=== PATIENT | male | born 1990 | race Caucasian/White ===

== ENCOUNTER 2020-01-23 19:21 | Emergency (ER) | payer BC ==
[~2020-01-23] VITALS: Ht 177.8 cm; Wt 102.1 kg
[2020-01-23 19:49] VITALS: BP 151/92
--- NOTE | 2020-01-23 19:55 | NUR ---
[facility] PATIENT HAD A DIRTY NEEDLESTICK FROM COVID PATIENT THIS PM. PATIENT WAS TESTED FOR COVID THIS AM, RESULTS PENDING. PATIENT HAS NO SYMPTOMS, BUT SEVERAL POSITIVE COVID PATIENT AT CARE CENTER PER PATIENT
[2020-01-23] MEDS ORDERED: ADACEL VIAL IM ONE ×2 (20:09→20:30)
--- NOTE | 2020-01-23 20:11 | ER.PDOC ---
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 Source pt not known to have hepatitis or AIDS Timing/Duration: 1 hour Severity: mild Associated Symptoms: denies symptoms Past Medical History Medical History: no pertinent history Social History Alcohol Use: occassionally Drug Use: none Review of Systems Constitutional: no symptoms reported EENTM: no symptoms reported Respiratory: no symptoms reported Cardiovascular: no symptoms reported Gastrointestinal: no symptoms reported Genitourinary: no symptoms reported Musculoskeletal: no symptoms reported Skin: other (needle stick L hand) Psychiatric/Neurological: no symptoms reported Hematologic/Lymphatic: no symptoms reported Immunological/Allergic: no symptoms reported Physical Exam General Appearance: No Apparent Distress, WD/WN EENT: eyes nml inspection, nml ENT inspection Neck: Non-Tender, Full Range of Motion Respiratory: chest non-tender, lungs clear CVS: reg rate & rhythm, no murmur, no gallop Gastrointestinal: Normal Bowel Sounds Back: Normal Inspection Extremities: Other (Needle puncture wound thenar eminence L hand) 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 NML as Tested, No Motor/Sensory Deficits, Alert, Normal Mood/Affect Skin: Normal Color Lymphatic: No Adenopathy Results/Orders Results/Orders Vital Signs Date Time Temp Pulse Resp B/P (MAP) Pulse Ox O2 Delivery O2 Flow Rate FiO2 01/23/20 19:49 98.4 100 16 99 01/23/20 19:49 98.4 100 16 01/23/20 19:49 98.4 100 16 151/92 (111) 99 Room Air Departure Time of Disposition: 20:10 Disposition: 01 HOME, SELF-CARE Impression: Primary Impression: Needle stick injury with contaminated needle Condition: Stable Referrals: PCP,UNKNOWN (PCP) PRIMARY CARE PROVIDER Additional Instructions: Quarantine procedures as per detention protocol Duration or Time Spent with Pa: MARISELA KYLE MD January 23, 2020 20:11
== END 2020-01-23 20:20 | disposition home or self-care (01) ==
LOC: ER 19:21
DX: S61.432A Puncture wound without foreign body of left hand, initial encounter (principal); Z77.21 Contact with and (suspected) exposure to potentially hazardous body fluids; W46.0XXA Contact with hypodermic needle, initial encounter; Y93.89 Activity, other specified; Y92.128 Other place in nursing home as the place of occurrence of the external cause; Y99.0 Civilian activity done for income or pay
CPT/HCPCS: 90471; 90715; 99284

== ENCOUNTER 2020-03-08 13:49 | Emergency (ER) | payer BC ==
[~2020-03-08] VITALS: Ht 177.8 cm; Wt 102.1 kg
[2020-03-08 14:52] VITALS: BP 133/74
--- NOTE | 2020-03-08 14:56 | ER.PDOC ---
General Chief Complaint: Requesting Medical Care Stated Complaint: PAIN,ABD PAIN,MALE Time seen by MD: 14:42 Source: patient Exam Limitations: no limitations History of Present Illness Initial Comments Pt reports discomfort in scrotum, L>R, for last 1 week. Today began to feel chilled, but no definite fever. Also reports body aches, fatigue, some gener alized abdominal discomfort. Had some nausea last week. Severity/Quality: moderate Associated Symptoms: Hesitancy Prior symptoms/Treatment: No Similar symptoms previous; Recenly Seen (Saw PCP a couple weeks ago for a 'spot' on his L testicle, was given Rocephin IM and Rx doxycycline.) Allergies: Coded Allergies: No Known Allergies (Unverified , 01/23/20) Past Medical History Medical History: no pertinent history Family History Significant Family History: no pertinent family hx Social History Drug Use: none Review of Systems Constitutional: see HPI EENTM: no symptoms reported Respiratory: no symptoms reported Cardiovascular: no symptoms reported Gastrointestinal: see HPI Genitourinary: see HPI; denies discharge, denies dysuria, denies frequency, denies flank pain, denies hematuria Musculoskeletal: see HPI Skin: rash (across low and mid back, for a couple weeks) Psychiatric/Neurological: no symptoms reported Endocrine: no symptoms reported All Other Systems: Reviewed and Negative Physical Exam General Appearance: No Apparent Distress EENT: nml ENT inspection Neck: nml inspection, non-tender Cardiovascular/Respiratory: Regular Rate, Rhythm Abdomen: Normal Bowel Sounds, Non Tender, Soft, No Organomegaly Rectal: Deferred Male Genitals: Epididymal Tenderness (L, mild), Testicular Tenderness (R) (mild), Testicular Tenderness (L) (mild) Back: nml inspection Extremities: Normal Range of Motion Neurologic/Psychiatric: No Motor/Sensory Deficits, Alert, Oriented x 3 Skin: Rash (well defined border light erythematous patches without skin thickening, with slighly raised edges, scattered across posterior toso from mid back to belt line) Lymphatic: No Adenopathy Results/Orders Results/Orders Orders - LESLIE KAUFMAN DO Cbc With Auto Diff (03/08/20 14:32) Comprehensive Metabolic Panel (03/08/20 14:32) Urinalysis (03/08/20 14:32) Us Scrotal (03/08/20 14:32) Vital Signs Date Time Temp Pulse Resp B/P (MAP) Pulse Ox O2 Delivery O2 Flow Rate FiO2 03/08/20 14:59 98.7 97 18 98 Room Air 03/08/20 14:59 98.7 97 18 03/08/20 14:52 98.7 97 18 98 Laboratory Tests Test 03/08/20 14:15 03/08/20 15:00 Urine Collection Type VOID Urine Color YELLOW (YELLOW) Urine Appearance CLEAR (CLEAR) Urine Bilirubin NEGATIVE MG/DL (NEGATIVE) Urine Ketones NEGATIVE (NEGATIVE) Urine Specific [place] 1.015 (1.005-1.035) Urine pH 6.0 (5.0-6.0) Urine Protein NEGATIVE (NEGATIVE) Urine Urobilinogen NEGATIVE (NEGATIVE) Urine Nitrate NEGATIVE (NEGATAIVE) Urine Leukocyte Esterase NEGATIVE (NEGATIVE) Urine Blood NEGATIVE (NEGATIVE) Urine Glucose NORMAL (NEGATIVE) White Blood Count 10.4 10^3/uL (4.5-11.0) Red Blood Count 5.59 10^6/uL (4.50-5.90) Hemoglobin 16.4 g/dL (13.9-16.3) H Hematocrit 49.4 % (37.0-53.0) Mean Corpuscular Volume 88.4 fL (78-100) Mean Corpuscular Hemoglobin 29.3 pg (26-34) Mean Corpuscular Hemoglobin Concent 33.2 g/dL (33-36.5) Red Cell Distribution Width 13.4 % (11.5-14.5) Platelet Count 190 10^3/uL (150-400) Mean Platelet Volume 9.1 fL (7.8-11.0) Neutrophils (%) (Auto) 67.1 % (41.0-85.0) Lymphocytes (%) (Auto) 23.3 % (24.0-44.0) L Monocytes (%) (Auto) 6.3 % (5.0-12.0) Neutrophils # (Auto) 7.0 10^3/uL (1.8-7.7) Lymphocytes # (Auto) 2.42 10^3/uL1 (1.0-4.8) Monocytes # (Auto) 0.7 10^3/uL (0.3-0.8) Absolute Immature Granulocyte (auto 0.02 10^3 u/L (0-2) Absolute Eosinophils (auto) 0.2 10^3/uL (0.0-0.2) Immature Granulocytes % 0.20 % (0.00-0.50) Eosinophils % 2.3 % (0.0-5.0) Basophils % 0.8 % (0.0-0.2) H Basophils # 0.1 10^3/uL (0.0-0.1) Sodium Level 139 mmol/L (132-145) Potassium Level 4.0 mmol/L (3.6-5.2) Chloride Level 103.0 mmol/L (96-109) Carbon Dioxide Level 28.5 mmol/L (20.0-32) Anion Gap 11.5 Blood Urea Nitrogen 10 mg/dL (7-18) Creatinine 0.88 mg/dL (0.59-1.40) Estimated GFR () 122.2 (>/=60) Est GFR (CKD-EPI)(Non-Afr [place]) 101.0 (>/=60) BUN/Creatinine Ratio 11.0 Glucose Level 94 mg/dL (70-110) Calcium Level 8.8 mg/dL (8.4-10.5) Total Bilirubin 0.4 mg/dL (0.2-1.0) Aspartate Amino Transferase (AST) 34 U/L (0-35) Alanine Aminotransferase (ALT) 64 U/L (12-78) Alkaline Phosphatase 66 U/L (50-136) Total Protein 7.4 g/dL (6.4-8.2) Albumin 3.9 g/dL (3.4-5.0) Globulin 3.5 Progress Progress Pt with nml u/s, symptoms not c/w torsion, may have prostatitis. Will start Cipro as he has been on Rocephin/doxy without improvement. Pt monagamous, not high risk for STD. Rash is c/w other rashes he's had with tinea versicolor. Told to take OTC Lotrimin. 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
[2020-03-08 14:59] VITALS: BP 133/74
--- NOTE | 2020-03-08 15:00 | NUR ---
US ULTRASOUND CALLED TO NOTIFY OF ORDER.
[2020-03-08 15:07] LABS: BASOPHIL # 0.1 10^3/uL (0.0-0.1); BASOPHIL % 0.8 % (0.0-0.2); EOSINOPHIL # 0.2 10^3/uL (0.0-0.2); EOSINOPHIL % 2.3 % (0.0-5.0); LYMPHOCYTES # 2.42 10^3/uL1 (1.0-4.8); LYMPHOCYTES % 23.3 % (24.0-44.0); MEAN CORP HGB 29.3 pg (26-34); MONOCYTES # 0.7 10^3/uL (0.3-0.8); MONOCYTES % 6.3 % (5.0-12.0); NEUTROPHILS % 67.1 % (41.0-85.0); RED CELL DISTRIBUTION WIDTH 13.4 % (11.5-14.5)
[2020-03-08 15:23] LABS: CALCIUM 8.8 mg/dL (8.4-10.5); CARBON DIOXIDE 28.5 mmol/L (20.0-32)
--- NOTE | 2020-03-08 16:35 | DIREP ---
PROCEDURE:US TESTICULAR WITH DOPPLER COMPARISON:[facility], US, US TESTICULAR WITH DOPPLER, 02/18/2020, 11:46 AM. INDICATIONS:scrotal pain LT, CHILLS, N/V TECHNIQUE:The scrotum was evaluated with kaye scale, spectral analysis, and color duplex doppler sonography. FINDINGS: RIGHT TESTICLE: Measures 4.9 x 2.6 x 3.3 cm. No mass or microcalcifications. LEFT TESTICLE: Measures 4.3 x 2.2 x 3.0 cm. No mass or microcalcifications. EPIDIDYMIS:The right epididymal head measures 1.2 x 0.9 cm. The left epididymal head measures 1.3 x 0.9 cm. Negative. OTHER:Previously identified hypoechoic lesion in the anterior left scrotal wall was not identified on today's exam. DOPPLER FLOW: Symmetric waveforms with sustained diastolic flow. CONCLUSION:Normal scrotal contents by ultrasound. Dictated by: [facility] Physician on 03/08/2020 at 04:22 PM ac
[2020-03-08 16:39] LABS: APPEARANCE,URINE CLEAR (CLEAR); BILIRUBIN,URINE NEGATIVE (NEGATIVE); UA COLOR YELLOW (YELLOW)
[2020-03-08 16:40] LABS: UROBILINOGEN,URINE NEGATIVE (NEGATIVE)
[2020-03-08 17:20] VITALS: BP 140/84
--- NOTE | 2020-03-08 17:40 | NUR ---
COVID TESTING PT TESTED FOR COVID THROUGH STATES. 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
== END 2020-03-08 17:40 | disposition home or self-care (01) ==
LOC: ER 13:49
DX: R39.11 Hesitancy of micturition (principal); N41.0 Acute prostatitis; B36.0 Pityriasis versicolor
CPT/HCPCS: 36415; 76870; 80053; 81002; 85025; 87635; 99284